=== PATIENT | male | born 1990 | race Caucasian/White ===

== ENCOUNTER 2017-06-01 08:54 | Emergency (ER) | payer BC ==
[~2017-06-01] VITALS: Ht 177.8 cm; Wt 81.5 kg
[~2017-06-01 08:54] MED LIST: DICY1TAB26 PO; LEXA5TAB PO; ZOFR4TAB3 PO
[2017-06-01 08:55] VITALS: BP 124/102; PULSE 107; RESP 20; TEMP 98.6; O2SAT 98
[2017-06-01 09:10] VITALS: BP 142/83; PULSE 110; RESP 16; O2SAT 99
[2017-06-01] MEDS ORDERED: ONDANSETRON HCL 4 MG/2 ML VIAL IV PUSH ONE (09:15)
[2017-06-01] MEDS ORDERED: DICYCLOMINE HCL 10 MG CAP PO ONE (09:15)
[2017-06-01] MEDS ORDERED: MORPHINE SULFATE 4 MG/ML INJ IV PUSH ONE (09:15)
[2017-06-01] MEDS ORDERED: SODIUM CHLOR 0.9% 1000 ML INJ 1,000 ML IV ONE ×2 (09:15)
--- NOTE | 2017-06-01 09:18 | PD ---
HPI Chief Complaint: Cold / Flu Symptoms Time Seen by Provider: 09:10 Travel History International Travel<30 days: No Contact w/Intl Traveler<30days: No Traveled to known affect area: No History of Present Illness HPI The patient is a 27-year-old male who presents emergency department for nausea, vomiting, diarrhea. The patient states her symptoms started this morning at 8 AM with multiple episodes of diarrhea which she describes as loose , watery, brown without any visible blood. He also notes mild epigastric discomfort after vomiting. He also complains of a sore throat after vomiting. He does note mild nasal congestion but denies any diffuse body aches. He denies any cough or shortness of breath. He does have a sick family member at home with similar symptoms last week which lasted 24 hours. He denies any fever , chills, or sweats. Symptoms are moderate. There are no current alleviating or exacerbating factors. He did not receive an influenza vaccination this year. PFSH Past Medical History Depression: Yes Gastrointestinal Disorders: Yes (IBS) Ulcer: Yes Past Surgical History Other Surgery: Yes (JAW) Social History Alcohol Use: Yes (OCC) Tobacco Use: Yes (2 CIGS DAILY) Substance Use: No Allergies-Medications (Allergen,Severity, Reaction): Coded Allergies: zolpidem (Unverified Allergy, Severe, 12/08/16) ONLY AMBIEN CR. CAN TAKE REGULAR AMBIEN Reported Meds & Prescriptions Reported Meds & Active Scripts Active Zofran ODT (Ondansetron HCl) 4 Mg Tab 4 Mg PO Q6 PRN May substitute, non-ODT form Bentyl (Dicyclomine HCl) 20 Mg Tab 1-2 Tab PO Q6HR PRN Reported Lexapro (Escitalopram Oxalate) 5 Mg Tab 2.5 Mg PO DAILY Review of Systems Except as stated in HPI: all other systems reviewed are Neg General / Constitutional: No: Fever, Chills HENT: Positive: Congestion Cardiovascular: No: Chest Pain or Discomfort Respiratory: No: Cough, Shortness of Breath Gastrointestinal: Positive: Nausea, Vomiting, Diarrhea, Abdominal Pain Musculoskeletal: No: Myalgias Physical Exam Narrative GENERAL: Awake, alert, pleasant 27-year-old male who appears his stated age and is in no acute respiratory distress. SKIN: Focused skin assessment warm/dry. HEAD: Atraumatic. Normocephalic. EYES: Pupils equal and round. No scleral icterus. No injection or drainage. ENT: No nasal bleeding or discharge. Dry mucous membranes. NECK: Trachea midline. No JVD. CARDIOVASCULAR: Regular, tachycardic with a heart rate over 5. RESPIRATORY: No accessory muscle use. Clear to auscultation. Breath sounds equal bilaterally. GASTROINTESTINAL: Abdomen soft, non-tender, nondistended. No rebound tennis, guarding, rigidity. MUSCULOSKELETAL: No obvious deformities. No clubbing. No cyanosis. No edema. NEUROLOGICAL: Awake and alert. No obvious cranial nerve deficits. Motor grossly within normal limits. Normal speech. PSYCHIATRIC: Appropriate mood and affect; insight and judgment normal. Data Data Last Documented VS Vital Signs Date Time Temp Pulse Resp B/P (MAP) Pulse Ox O2 Delivery O2 Flow Rate FiO2 06/01/17 09:10 110 16 142/83 (102) 99 Room Air 06/01/17 08:55 98.6 Orders Orders Complete Blood Count With Diff (06/01/17 09:14) Comprehensive Metabolic Panel (06/01/17 09:14) Influenzae A/B Antigen (06/01/17 09:14) Ondansetron Inj (Zofran Inj) (06/01/17 09:15) Morphine Inj (Morphine Inj) (06/01/17 09:15) Sodium Chlor 0.9% 1000 Ml Inj (Ns 1000 M (06/01/17 09:15) Sodium Chlor 0.9% 1000 Ml Inj (Ns 1000 M (06/01/17 09:15) Dicyclomine (Bentyl) (06/01/17 09:15) Pantoprazole (Protonix) (06/01/17 10:15) Labs Laboratory Tests Test 06/01/17 09:17 White Blood Count 11.2 TH/MM3 Red Blood Count 6.18 MIL/MM3 Hemoglobin 16.8 GM/DL Hematocrit 47.5 % Mean Corpuscular Volume 76.9 FL Mean Corpuscular Hemoglobin 27.2 PG Mean Corpuscular Hemoglobin Concent 35.4 % Red Cell Distribution Width 13.3 % Platelet Count 224 TH/MM3 Mean Platelet Volume 7.4 FL Neutrophils (%) (Auto) 81.2 % Lymphocytes (%) (Auto) 14.3 % Monocytes (%) (Auto) 3.4 % Eosinophils (%) (Auto) 0.9 % Basophils (%) (Auto) 0.2 % Neutrophils # (Auto) 9.1 TH/MM3 Lymphocytes # (Auto) 1.6 TH/MM3 Monocytes # (Auto) 0.4 TH/MM3 Eosinophils # (Auto) 0.1 TH/MM3 Basophils # (Auto) 0.0 TH/MM3 CBC Comment DIFF FINAL Differential Comment Blood Urea Nitrogen 21 MG/DL Creatinine 1.23 MG/DL Random Glucose 119 MG/DL Total Protein 8.9 GM/DL Albumin 4.7 GM/DL Calcium Level 9.9 MG/DL Alkaline Phosphatase 99 U/L Aspartate Amino Transf (AST/SGOT) 44 U/L Alanine Aminotransferase (ALT/SGPT) 75 U/L Total Bilirubin 0.5 MG/DL Sodium Level 136 MEQ/L Potassium Level 3.5 MEQ/L Chloride Level 103 MEQ/L Carbon Dioxide Level 24.8 MEQ/L Anion Gap 8 MEQ/L Estimat Glomerular Filtration Rate 71 ML/MIN MDM Medical Decision Making Medical Screen Exam Complete: Yes Emergency Medical Condition: Yes Medical Record Reviewed: Yes Interpretation(s) Date/Time Source Procedure Growth Status 06/01/17 09:17 Nasal Aspirate Influenza Types A,B Antigen (JOSE) - Final NEGATIVE FOR FLU A AND B ANTIGEN.... Complete Laboratory Tests Test 06/01/17 09:17 White Blood Count 11.2 TH/MM3 Red Blood Count 6.18 MIL/MM3 Hemoglobin 16.8 GM/DL Hematocrit 47.5 % Mean Corpuscular Volume 76.9 FL Mean Corpuscular Hemoglobin 27.2 PG Mean Corpuscular Hemoglobin Concent 35.4 % Red Cell Distribution Width 13.3 % Platelet Count 224 TH/MM3 Mean Platelet Volume 7.4 FL Neutrophils (%) (Auto) 81.2 % Lymphocytes (%) (Auto) 14.3 % Monocytes (%) (Auto) 3.4 % Eosinophils (%) (Auto) 0.9 % Basophils (%) (Auto) 0.2 % Neutrophils # (Auto) 9.1 TH/MM3 Lymphocytes # (Auto) 1.6 TH/MM3 Monocytes # (Auto) 0.4 TH/MM3 Eosinophils # (Auto) 0.1 TH/MM3 Basophils # (Auto) 0.0 TH/MM3 CBC Comment DIFF FINAL Differential Comment Blood Urea Nitrogen 21 MG/DL Creatinine 1.23 MG/DL Random Glucose 119 MG/DL Total Protein 8.9 GM/DL Albumin 4.7 GM/DL Calcium Level 9.9 MG/DL Alkaline Phosphatase 99 U/L Aspartate Amino Transf (AST/SGOT) 44 U/L Alanine Aminotransferase (ALT/SGPT) 75 U/L Total Bilirubin 0.5 MG/DL Sodium Level 136 MEQ/L Potassium Level 3.5 MEQ/L Chloride Level 103 MEQ/L Carbon Dioxide Level 24.8 MEQ/L Anion Gap 8 MEQ/L Estimat Glomerular Filtration Rate 71 ML/MIN Differential Diagnosis Differential diagnosis includes gastroenteritis, enteritis, colitis, food poisoning, influenza, viral syndrome, electrolyte abnormality, dehydration. Narrative Course IV was established, labs are drawn and sent, and the patient was placed on cardiac telemetry monitoring and continuous pulse oximetry monitoring. The patient received Zofran, morphine, Bentyl, and 2 L of IV fluids. Influenza screen was sent to lab. Influenza screen is negative. BUN is slightly elevated , most likely secondary to dehydration. The patient states he takes Protonix 80 mg twice a day, has to refill his prescription today. His prescription was prescribed by [employer] after endoscopy in [place]. Therefore, the patient was administered Protonix 80 mg orally. His symptoms have improved, he will be discharged home on Zofran. He is advised to have clear liquid diet and advance as tolerated. Return if symptoms worsen or progress. Diagnosis Primary Impression: Gastroenteritis Patient Instructions: General Instructions Additional Instructions: Zofran as directed. Clear liquid diet and advance as tolerated. Plenty fluids to stay hydrated. Return if symptoms worsen or progress. Med/Other Pt SpecificInfo: Prescription(s) given Scripts Ondansetron Odt (Zofran Odt) 4 Mg Tab 4 MG SL Q6HR Y for Nausea/Vomiting, #7 TAB 0 Refills Prov: Azar Egan MD 06/01/17 Disposition: DISCHARGE HOME Condition: Stable Azar Egan MD Jun 01, 2017 09:18
[2017-06-01 09:31] LABS: AUTOMATED NEUTROPHIL # 9.1 TH/MM3 (1.8-7.7); BASOPHIL % 0.2 % (0.0-2.0); EOSINOPHIL # 0.1 TH/MM3 (0-0.4); EOSINOPHIL % 0.9 % (0.0-4.0); HEMATOCRIT 47.5 % (39.0-51.0); HEMOGLOBIN 16.8 GM/DL (13.0-17.0); LYMPH % 14.3 % (9.0-44.0); LYMPHOCYTE # 1.6 TH/MM3 (1.0-4.8); MEAN CELL VOLUME 76.9 FL (80.0-100.0); MEAN CORPUSCULAR HEMOGLOBIN 27.2 PG (27.0-34.0); MEAN CORPUSCULAR HGB CONC 35.4 % (32.0-36.0); MEAN PLATELET VOLUME 7.4 FL (7.0-11.0); MONO % 3.4 % (0.0-8.0); MONOCYTE # 0.4 TH/MM3 (0-0.9); NEUT % 81.2 % (16.0-70.0); PLATELET COUNT 224 TH/MM3 (150-450); RED BLOOD COUNT 6.18 MIL/MM3 (4.50-5.90); RED CELL DISTRIBUTION WIDTH 13.3 % (11.6-17.2); WHITE BLOOD COUNT 11.2 TH/MM3 (4.0-11.0)
[2017-06-01 09:48] LABS: ALBUMIN 4.7 GM/DL (3.4-5.0); AST (GOT) 44 U/L (15-37); BICARBONATE 24.8 MEQ/L (21.0-32.0); BLOOD UREA NITROGEN 21 MG/DL (7-18); CALCIUM 9.9 MG/DL (8.5-10.1); CHLORIDE 103 MEQ/L (98-107); CREATININE 1.23 MG/DL (0.60-1.30); GLOMERULAR FILTRATION RATE 71 ML/MIN (>89); GLUCOSE,RANDOM 119 MG/DL (74-106); SODIUM (NA) 136 MEQ/L (136-145)
[2017-06-01 09:52] LABS: ALKALINE PHOSPHATASE 99 U/L (45-117); ALT (GPT) 75 U/L (12-78); TOTAL BILIRUBIN ADULT 0.5 MG/DL (0.2-1.0); TOTAL PROTEIN 8.9 GM/DL (6.4-8.2)
[2017-06-01] MEDS ORDERED: PANTOPRAZOLE SOD 40 MG DELAYED RELEASE TAB PO ONE (10:15)
[2017-06-01] MEDS ORDERED: ZOFR4TAB3 SL (10:17)
[2017-06-01 10:53] VITALS: BP 130/82; PULSE 92; RESP 15; O2SAT 99
== END 2017-06-01 10:59 | disposition home or self-care (01) ==
LOC: NEPD 08:54
DX: K52.9 Noninfective gastroenteritis and colitis, unspecified (principal); F32.9 Major depressive disorder, single episode, unspecified; F17.210 Nicotine dependence, cigarettes, uncomplicated; Z88.8 Allergy status to other drugs, medicaments and biological substances; Z79.899 Other long term (current) drug therapy
CPT/HCPCS: 80053; 85025; 87804; 96361; 96374; 96375; 99284; J2270; J2405; J7030

== ENCOUNTER 2018-03-25 12:17 | Observation (INO) ==
[2018-03-25] MEDS ORDERED: Morphine Inj 4 MG/ML Vial IV.PUSH ONE (12:48)
--- NOTE | 2018-03-25 12:59 | ED ---
HPI General Chief Complaint: Abdominal Pain Stated Complaint: Abd Pain Time Seen by Provider: 03/25/18 12:40 History of Present Illness HPI narrative: This patient complains of abdominal pain. Location is right lower quadrant. Severity is moderate. Denies vomiting or diarrhea. Duration is about 8 hours. He reports history of irritable bowel syndrome but says this feels very different. No alleviating factors. No exacerbating factors. Not having any fever or urinary complaints. Related Data Home Medications Medication Instructions Recorded Confirmed amoxicillin 500 mg PO BID 03/25/18 03/25/18 pantoprazole 40 mg PO DAILY 03/25/18 03/25/18 Allergies Allergy/AdvReac Type Severity Reaction Status Date / Time zolpidem Allergy Severe Hives Unverified 03/25/18 12:22 Review of Systems ROS: all other systems reviewed are negative [facility] Medical History Medical History IBS (irritable bowel syndrome) (Acute) Surgical History Surgical History History of mandibular surgery (Acute) Social History Social History Substance History: No History of Abuse Second Hand Smoke Exposure: Yes Smoking Status: Heavy tobacco smoker Tobacco Type: Cigarettes How Often Do You Have a Drink Containing Alcohol: Monthly or less Recent Travel in [facility] within the Last 8 Weeks: No Recent Out of Country Travel within the Last 8 Weeks: No Immunization History Tetanus Immunization: Unsure Exam Narrative Exam Narrative: GENERAL: Well-nourished, well-developed patient in no apparent distress. SKIN: Focused skin assessment reveals no rash and nodules. Skin is Warm and dry. HEAD: Atraumatic. Normocephalic. EYES: Pupils equal and round. No scleral icterus. No injection or drainage. ENT: No nasal bleeding or discharge. Mucous membranes pink and moist. NECK: Trachea midline. No JVD. CARDIOVASCULAR: Regular rate and rhythm. No murmur appreciated. RESPIRATORY: No accessory muscle use. Clear to auscultation. Breath sounds equal bilaterally. GASTROINTESTINAL: Abdomen soft, right lower quadrant is tender without rebound or guarding, nondistended. Hepatic and splenic margins not palpable. MUSCULOSKELETAL: No obvious deformities. No clubbing. No cyanosis. No edema. NEUROLOGICAL: Awake and alert. No obvious cranial nerve deficits. Motor grossly within normal limits. Normal speech. PSYCHIATRIC: Appropriate mood and affect; insight and judgment normal. Course Initial Documented Vital Signs Temperature 97.6 F 03/25/18 12:20 Pulse Rate 91 H 03/25/18 12:20 Respiratory Rate 18 03/25/18 12:20 Blood Pressure 145/92 H 03/25/18 12:20 Pulse Oximetry 98 03/25/18 12:20 Last Documented Vital Signs Temperature 97.6 F 03/25/18 12:20 Pulse Rate 86 03/25/18 13:00 Respiratory Rate 16 03/25/18 15:01 Blood Pressure 144/85 H 03/25/18 13:00 Pulse Oximetry 99 03/25/18 13:00 Medical Decision Making MDM Narrative Medical decision making narrative: 27-year-old male with 8 hours of right lower quadrant pain. I will need to rule out appendicitis. I ordered labs and a CT of abdomen and pelvis and urinalysis. Given 1 dose of morphine and Zofran for symptom relief. Labs are reviewed. Reasonably normal. I gave him IV fluid and a dose of Zosyn. CT shows acute appendicitis. I have discussed with general surgeon Dr. Coello who will admit for operative intervention Medical Screen Exam Complete: Yes Emergency Medical Condition: Yes Differential Diagnosis Differential Diagnosis: Appendicitis, colitis, IBS Medical Records Medical records reviewed: Yes I reviewed the patient's medical records. Lab Data Lab results reviewed: Yes I reviewed the patient's lab results. Lab results narrative: White cell count is 11. Hemoglobin normal. Creatinine normal Result diagrams: 03/25/18 12:00 03/25/18 12:00 Lab Results 03/25/18 03/25/18 03/25/18 Range/Units 12:00 12:00 12:00 WBC 11.2 H (4.0-11.0) th/mm3 RBC 5.39 (4.50-5.90) mil/mm3 Hgb 14.6 (13.0-17.0) gm/dL Hct 42.6 (39.0-51.0) % MCV 79.1 L (80.0-100.0) fL MCH 27.2 (27.0-34.0) pg MCHC 34.3 (32.0-36.0) % RDW 13.6 (11.6-17.2) % Plt Count 209 (150-450) th/mm3 MPV 8.0 (7.0-11.0) fL Neut % (Auto) 78.4 H (16.0-70.0) % Lymph % (Auto) 15.4 (9.0-44.0) % Todd % (Auto) 5.0 (0.0-8.0) % Eos % (Auto) 0.9 (0.0-4.0) % Baso % (Auto) 0.3 (0.0-2.0) % Neut # (Auto) 8.8 H (1.8-7.7) th/mm3 Lymph # (Auto) 1.7 (1.0-4.8) th/mm3 Todd # (Auto) 0.6 (0.0-0.9) th/mm3 Eos # (Auto) 0.1 (0.0-0.4) th/mm3 Baso # (Auto) 0.0 (0.0-0.2) th/mm3 WBC Differential . Differential Comment Auto diff final PT 10.3 (9.8-11.6) sec INR 1.0 Ratio APTT 30.7 (23.4-31.7) sec Sodium 137 (136-145) meq/L Potassium 3.4 L (3.5-5.1) meq/L Chloride 104 (98-107) meq/L Carbon Dioxide 26.2 (21.0-32.0) meq/L Anion Gap 7 (5-15) meq/L BUN 23 H (7-18) mg/dL Creatinine 0.98 (0.60-1.30) mg/dL Estimated GFR Greater than 89 (>89) mL/min Random Glucose 111 H (74-106) mg/dL Calcium 8.8 (8.5-10.1) mg/dL Total Bilirubin 0.4 (0.2-1.0) mg/dL AST 40 H (15-37) U/L ALT 99 H (12-78) U/L Alkaline Phosphatase 100 (45-117) U/L Total Protein 7.7 (6.4-8.2) g/dL Albumin 4.3 (3.4-5.0) g/dL Urine Color (Yellw/Straw) Urine Clarity (Clear) Urine pH (5.0-8.5) Ur Specific [place] (1.002-1.035) Urine Protein (Neg-Trace) mg/dL Urine Glucose (UA) (Negative) mg/dL Urine Ketones (Negative) mg/dL Urine Occult Blood (Negative) Urine Nitrate (Negative) Urine Bilirubin (Negative) Urine Urobilinogen (Less than 2) mg/dL Ur Leukocyte Esterase (Negative) Urine RBC (0-3) /hpf Urine WBC (0-5) /hpf Waxy Casts (None) /lpf Urine Mucus (Occasional) /lpf Micro UA Comment Ur Microscopic Review Urine Culture Comments 03/25/18 Range/Units 14:45 WBC (4.0-11.0) th/mm3 RBC (4.50-5.90) mil/mm3 Hgb (13.0-17.0) gm/dL Hct (39.0-51.0) % MCV (80.0-100.0) fL MCH (27.0-34.0) pg MCHC (32.0-36.0) % RDW (11.6-17.2) % Plt Count (150-450) th/mm3 MPV (7.0-11.0) fL Neut % (Auto) (16.0-70.0) % Lymph % (Auto) (9.0-44.0) % Todd % (Auto) (0.0-8.0) % Eos % (Auto) (0.0-4.0) % Baso % (Auto) (0.0-2.0) % Neut # (Auto) (1.8-7.7) th/mm3 Lymph # (Auto) (1.0-4.8) th/mm3 Todd # (Auto) (0.0-0.9) th/mm3 Eos # (Auto) (0.0-0.4) th/mm3 Baso # (Auto) (0.0-0.2) th/mm3 WBC Differential Differential Comment PT (9.8-11.6) sec INR Ratio APTT (23.4-31.7) sec Sodium (136-145) meq/L Potassium (3.5-5.1) meq/L Chloride (98-107) meq/L Carbon Dioxide (21.0-32.0) meq/L Anion Gap (5-15) meq/L BUN (7-18) mg/dL Creatinine (0.60-1.30) mg/dL Estimated GFR (>89) mL/min Random Glucose (74-106) mg/dL Calcium (8.5-10.1) mg/dL Total Bilirubin (0.2-1.0) mg/dL AST (15-37) U/L ALT (12-78) U/L Alkaline Phosphatase (45-117) U/L Total Protein (6.4-8.2) g/dL Albumin (3.4-5.0) g/dL Urine Color Yellow (Yellw/Straw) Urine Clarity Clear (Clear) Urine pH 5.0 (5.0-8.5) Ur Specific [place] 1.027 (1.002-1.035) Urine Protein Negative (Neg-Trace) mg/dL Urine Glucose (UA) Negative (Negative) mg/dL Urine Ketones Negative (Negative) mg/dL Urine Occult Blood Negative (Negative) Urine Nitrate Negative (Negative) Urine Bilirubin Negative (Negative) Urine Urobilinogen Less than 2 (Less than 2) mg/dL Ur Leukocyte Esterase Negative (Negative) Urine RBC 1 (0-3) /hpf Urine WBC 1 (0-5) /hpf Waxy Casts 1 (None) /lpf Urine Mucus Few H (Occasional) /lpf Micro UA Comment Culture not ind Ur Microscopic Review Not Reportable Urine Culture Comments Culture not ind Imaging Data Attestation: I personally reviewed and interpreted this imaging study as follows : My impression: CT shows acute appendicitis Radiologist's impression: Abdomen/Pelvis CT 03/25/18 12:48 CONCLUSION: 1. Mildly dilated fluid-filled appendix with periappendiceal inflammatory changes suggesting acute unruptured appendicitis. No periappendiceal abscess is noted. Discharge Plan Discharge Disposition Patient Disposition: ED Admit(ED Internal Use Only) Discharge Details Diagnosis: Acute appendicitis Physicians Team ED Provider: Kirk Guzman Primary Care Provider: Primary Care Rachel Barajas Rxs /Orders / Referrals /Forms Prescriptions: No Action amoxicillin 500 mg Tablet 500 mg PO BID RF: 0 pantoprazole 40 mg Tablet,Delayed Release (Dr/Ec) 40 mg PO DAILY RF: 0 Status ED Status: Admitted Patient
[2018-03-25 13:36] LABS: Baso % (Auto) 0.3 % (0.0-2.0); Eos # (Auto) 0.1 th/mm3 (0.0-0.4); Eos % (Auto) 0.9 % (0.0-4.0); Hematocrit 42.6 % (39.0-51.0); Hemoglobin 14.6 gm/dL (13.0-17.0); Lymph # (Auto) 1.7 th/mm3 (1.0-4.8); Lymph % (Auto) 15.4 % (9.0-44.0); Mean Corpuscular HGB Conc 34.3 % (32.0-36.0); Mean Corpuscular Hemoglobin 27.2 pg (27.0-34.0); Mean Corpuscular Volume 79.1 fL (80.0-100.0); Mono # (Auto) 0.6 th/mm3 (0.0-0.9); Neut # (Auto) 8.8 th/mm3 (1.8-7.7); Neut % (Auto) 78.4 % (16.0-70.0); Platelet Count 209 th/mm3 (150-450); Red Blood Count 5.39 mil/mm3 (4.50-5.90); Red Cell Distribution Width 13.6 % (11.6-17.2); White Blood Count 11.2 th/mm3 (4.0-11.0)
[2018-03-25 13:45] LABS: Activated Partial Thrombo Time 30.7 sec (23.4-31.7); Prothrombin Time 10.3 sec (9.8-11.6)
[2018-03-25 14:07] LABS: Alanine Aminotransferase 99 U/L (12-78); Albumin 4.3 g/dL (3.4-5.0); Anion Gap 7 meq/L (5-15); Aspartate Aminotransferase 40 U/L (15-37); Blood Urea Nitrogen 23 mg/dL (7-18); Calcium 8.8 mg/dL (8.5-10.1); Carbon Dioxide 26.2 meq/L (21.0-32.0); Chloride 104 meq/L (98-107); Glomerular Filtration Rate Greater Than 89 mL/min (>89); Glucose,Random 111 mg/dL (74-106); Potassium 3.4 meq/L (3.5-5.1); Sodium 137 meq/L (136-145)
[2018-03-25 14:09] LABS: Alkaline Phosphatase 100 U/L (45-117); Total Protein 7.7 g/dL (6.4-8.2)
[2018-03-25] MEDS ORDERED: Sod Chloride 0.9% Inj 1,000 ML IV.SIG ONE (14:46)
[2018-03-25 15:05] LABS: Bilirubin,Urine Negative (Negative); Clarity,Urine Clear (Clear); Color,Urine Yellow (Yellw/Straw); Glucose,Urine (UA) Negative (Negative); Leukocyte Esterase,Urine Negative (Negative); Mucus,Urine Few /lpf (Occasional); Nitrite,Urine Negative (Negative); Specific Gravity,Urine 1.027 (1.002-1.035)
--- NOTE | 2018-03-25 15:38 | CT ---
EXAM DATE: 03/25/2018 3:17 PM EST AGE/SEX: 27 years / Male INDICATIONS: Right lower abdomen pain today. CLINICAL DATA: This is the patient's initial encounter. Patient reports that signs and symptoms have been present for 1 day and indicates a pain score of 9/10. MEDICAL/SURGICAL HISTORY: None. None. ORAL CONTRAST: No oral contrast ingested. RADIATION DOSE: 6.84 CTDI (mGy) COMPARISON: [facility] – [place], CT ABDOMEN & PELVIS W CONTRAST, 01/28/2012. . TECHNIQUE: Multiple contiguous axial images were obtained through the abdomen and pelvis following b olus infusion of 96 ml Omnipaque 350 (iohexol) nonionic water-soluble contrast as a single exam dos e. No oral contrast ingested. Using automated exposure control and adjustment of the mA and/or kV ac cording to patient size, radiation dose was kept as low as reasonably achievable to obtain optimal di agnostic quality images. DICOM format image data is available electronically for review and comparis on. FINDINGS: Lower Lungs: The visualized lower lungs are clear. Liver: The liver has a homogeneous density without space-occupying lesion. There is no dilation of th e biliary tree. Spleen: Homogeneous density without enlargement. Pancreas: Unremarkable without mass or calcification. Kidneys: Normal in size and shape. No evidence of mass or hydronephrosis. Adrenal Glands: Unremarkable. Aorta: The aorta and proximal iliac vessels are grossly unremarkable without aneurysmal dilation. Bowel/Mesentery: There is evidence of a mildly dilated fluid-filled appendix with periappendiceal in flammatory changes suggesting acute unruptured appendicitis. No periappendiceal abscess is noted. Abdominal Wall: Intact. Retroperitoneum: No evidence of adenopathy in the retrocrural, para-aortic, or deep pelvic regions. Bladder: Contours are smooth. Reproductive Organs: No abnormal masses or calcifications seen. Inguinal: The inguinal region is unremarkable without evidence of adenopathy. Bony Structures: Unremarkable. CONCLUSION: 1. Mildly dilated fluid-filled appendix with periappendiceal inflammatory changes suggesting acute u nruptured appendicitis. No periappendiceal abscess is noted. Electronically signed by: Asif Freeman MD 03/25/2018 3:37 PM EST
[2018-03-25] MEDS ORDERED: Piperacil/Tazo 3.375 GM Premix 50 ML IV.SIG ONE (15:50)
[2018-03-25] MEDS ORDERED: fentaNYL Citrate Inj 250 MCG/5 ML Ampul ONE (16:00)
[2018-03-25] MEDS ORDERED: Bupivacaine/Epinephrine Inj 0.25% 50 ML Vial ONE (16:40)
[2018-03-25] MEDS ORDERED: Bisacodyl 10 MG Supp RECTAL PRN (18:07)
[2018-03-25] MEDS ORDERED: Morphine Sulfate Inj 8 MG/ML Vial IV.PUSH PRN (18:07)
[2018-03-25] MEDS ORDERED: Post-op Orders (for Pharmacy) OTHER ONE (18:07)
[2018-03-25] MEDS ORDERED: Promethazine 25 MG Supp RECTAL PRN (18:07)
[2018-03-25] MEDS ORDERED: Ketorolac Inj 30 MG/ML (IVP) Vial IV.PUSH PRN (18:07)
--- NOTE | 2018-03-25 18:17 | P.HP ---
History of Present Illness Primary Care Physician: No Primary Care Physician History of Present Illness: Patient presents with about an 8-hour history of lower abdominal pain that has localized to the right lower quadrant. Patient denies nausea emesis or change in bowel habits. He has a baseline loose bowel movement from IBS. He denies fever or chills. - Diagnosis (1) Acute appendicitis Estimated Total Length of Stay (Days): 1 (Observation status) Plans for Post Hospital Care: Home Review of Systems All other systems reviewed negative except as stated in [facility] [place] - History History Provided By: Patient - Medical History Medical History: Medical History (Last Updated 03/25/18 @ 12:21 by Chloe Lyon) IBS (irritable bowel syndrome) - Surgical History Surgical History: Surgical History (Last Updated 03/25/18 @ 12:21 by Chloe Lyon) History of mandibular surgery - Tobacco History Second Hand Smoke Exposure: Yes Tobacco Use In Past 30 Days: Yes Smoking Status: Heavy tobacco smoker Tobacco Type: Cigarettes - Alcohol History How Often Do You Have a Drink Containing Alcohol: Monthly or less - Substance Use History Substance History: No History of Abuse - Travel History Recent Travel in the [place] Within the Last 8 Weeks: No Recent Travel Out of the Country Within the Last 8 Weeks: No - Immunization History Tetanus Immunization: Unsure Medications and Allergies Active Medications: Active Medications Hydrocodone Bitart/Acetaminophen ([place] 5/325) 1 tab PO Q4H PRN PRN Reason: PAIN SCALE 1 TO 5 Al Hydroxide/Mg Hydroxide (Milk Of Magnesia Liq) 30 ml PO Q12H PRN PRN Reason: Mild Constipation Bisacodyl (Dulcolax Supp) 10 mg RECTAL DAILY PRN PRN Reason: SEVERE CONSITIPATION Diphenhydramine HCl (Benadryl) 25 mg PO Q6H PRN PRN Reason: ITCHING Sodium Chloride (Ns Inj) 1,000 mls @ 100 mls/hr IV.CONT .Q10H ANDRE Ketorolac Tromethamine (Toradol Inj) 30 mg IV.PUSH Q6H PRN PRN Reason: PAIN SCALE 1 TO 5 Stop: 03/30/18 18:06 Lactulose (Lactulose Liq) 30 ml PO DAILY PRN PRN Reason: SEVERE CONSITIPATION Miscellaneous Information (Misc Post-Op Orders (For Pharmacy)) 0 each OTHER STAT ONE Stop: 03/25/18 18:08 Miscellaneous Information ([facility] Nursing Information) 1 each OTHER UNSCH PRN PRN Reason: SEE LABEL COMMENTS Stop: 03/26/18 18:10 Morphine Sulfate (Morphine Inj) 5 mg IV.PUSH Q2H PRN PRN Reason: BREAKTHROUGH PAIN Ondansetron HCl (Zofran Odt) 4 mg PO Q6H PRN PRN Reason: NAUSEA OR VOMITING Ondansetron HCl (Zofran Inj) 4 mg IV.PUSH Q6H PRN PRN Reason: NAUSEA OR VOMITING Promethazine HCl (Phenergan) 25 mg PO Q6H PRN PRN Reason: NAUSEA OR VOMITING Promethazine HCl (Phenergan Supp) 25 mg RECTAL Q6H PRN PRN Reason: NAUSEA OR VOMITING Senna/Docusate Sodium (Yaneli-Colace) 1 tab PO BID ANDRE Sennosides (Senokot) 17.2 mg PO Q12H PRN PRN Reason: Moderate Constipation Sodium Chloride (Ns Flush) 2 ml IV.FLUSH PRN PRN PRN Reason: FLUSH AFTER USING IV ACCESS Last Admin: 03/25/18 12:57 Dose: 2 ml Allergies Allergy/AdvReac Type Severity Reaction Status Date / Time zolpidem Allergy Severe Hives Unverified 03/25/18 12:22 Home Medications Medication Instructions Recorded Confirmed Type amoxicillin 500 mg PO BID 03/25/18 03/25/18 History pantoprazole 40 mg PO DAILY 03/25/18 03/25/18 History Exam Vital signs: Vital Signs 03/25/18 12:20 03/25/18 13:00 03/25/18 15:01 Temperature 97.6 F Pulse Rate 91 H 86 Respiratory Rate 18 16 16 Blood Pressure 145/92 H 144/85 H Pulse Oximetry 98 99 03/25/18 16:00 Temperature Pulse Rate 75 Respiratory Rate 16 Blood Pressure 117/74 Pulse Oximetry 100 Intake & Output 03/24/18 03/25/18 03/25/18 18:59 06:59 18:59 Intake Total 1550 / 1550 Output Total 10 Balance 1540 / 1540 Weight 86.183 kg Intake: IV 1050 / 1050 Zosyn 3.375 GM Premix 50 ML @ 50 / 50 100 mls/hr IV.SIG ONCE ONE Rx#: [id number] NS Inj 1,000 ML @ Wide Open IV. 1000 / 1000 SIG BOLUS ONE Rx#:[id number] Anesthesia Amount 500 / 500 Output: Estimated Blood Loss - Constitutional no acute distress - Routine HEENT Exam Head: Present: normocephalic, atraumatic - Routine Neck Exam Present: supple - Routine Respiratory Exam Present: CTA bilaterally - Routine Cardiovascular Exam Present: RRR - Routine Abdominal Exam Present: soft, tenderness (Right lower quadrant with guarding) - Routine Skin Exam Present: intact - Routine Neurological Exam Present: alert, oriented X3 Results - Labs CBC & Chem 7: 03/25/18 12:00 03/25/18 12:00 Labs: Laboratory Results - last 24 hr 03/25/18 03/25/18 03/25/18 12:00 12:00 12:00 WBC 11.2 H RBC 5.39 Hgb 14.6 Hct 42.6 MCV 79.1 L MCH 27.2 MCHC 34.3 RDW 13.6 Plt Count 209 MPV 8.0 Neut % (Auto) 78.4 H Lymph % (Auto) 15.4 [place] % (Auto) 5.0 Eos % (Auto) 0.9 Baso % (Auto) 0.3 Neut # (Auto) 8.8 H Lymph # (Auto) 1.7 [place] # (Auto) 0.6 Eos # (Auto) 0.1 Baso # (Auto) 0.0 WBC Differential . Differential Comment Auto diff final PT 10.3 INR 1.0 APTT 30.7 Sodium 137 Potassium 3.4 L Chloride 104 Carbon Dioxide 26.2 Anion Gap 7 BUN 23 H Creatinine 0.98 Estimated GFR Greater than 89 Random Glucose 111 H Calcium 8.8 Total Bilirubin 0.4 AST 40 H ALT 99 H Alkaline Phosphatase 100 Total Protein 7.7 Albumin 4.3 Urine Color Urine Clarity Urine pH Ur Specific [place] Urine Protein Urine Glucose (UA) Urine Ketones Urine Occult Blood Urine Nitrate Urine Bilirubin Urine Urobilinogen Ur Leukocyte Esterase Urine RBC Urine WBC Waxy Casts Urine Mucus Micro UA Comment Ur Microscopic Review Urine Culture Comments 03/25/18 14:45 WBC RBC Hgb Hct MCV MCH MCHC RDW Plt Count MPV Neut % (Auto) Lymph % (Auto) [place] % (Auto) Eos % (Auto) Baso % (Auto) Neut # (Auto) Lymph # (Auto) [place] # (Auto) Eos # (Auto) Baso # (Auto) WBC Differential Differential Comment PT INR APTT Sodium Potassium Chloride Carbon Dioxide Anion Gap BUN Creatinine Estimated GFR Random Glucose Calcium Total Bilirubin AST ALT Alkaline Phosphatase Total Protein Albumin Urine Color Yellow Urine Clarity Clear Urine pH 5.0 Ur Specific [place] 1.027 Urine Protein Negative Urine Glucose (UA) Negative Urine Ketones Negative Urine Occult Blood Negative Urine Nitrate Negative Urine Bilirubin Negative Urine Urobilinogen Less than 2 Ur Leukocyte Esterase Negative Urine RBC 1 Urine WBC 1 Waxy Casts 1 Urine Mucus Few H Micro UA Comment Culture not ind Ur Microscopic Review Not Reportable Urine Culture Comments Culture not ind - Imaging Impressions Abdomen/Pelvis CT 03/25/18 12:48 CONCLUSION: 1. Mildly dilated fluid-filled appendix with periappendiceal inflammatory changes suggesting acute unruptured appendicitis. No periappendiceal abscess is noted. Caprini VTE Risk Assessment Caprini VTE Risk Assessment: No/Low Risk (score <= 1) (Age <40, no risk factors) Caprini Risk Assessment Model: Point Value = 1 Point Value = 2 Point Value = 3 Point Value = 5 Age 41-60 Minor surgery BMI > 25 kg/m2 Swollen legs Varicose veins or History of unexplained or recurrent spontaneous Oral contraceptives or hormone replacement Sepsis (< 1 month) Serious lung disease, including pneumonia (< 1 month) Abnormal pulmonary function Acute myocardial infarction Congestive heart failure (< 1 month) History of inflammatory bowel disease Medical patient at bed rest Age 61-74 Arthroscopic surgery Major open surgery (> 45 min) Laparoscopic surgery (> 45 min) Malignancy Confined to bed (> 72 hours) Immobilizing plaster cast Central venous access Age >= 75 History of VTE Family history of VTE Factor V Leiden Prothrombin [id number] Lupus anticoagulant Anticardiolipin antibodies Elevated serum homocysteine Heparin-induced thrombocytopenia Other congenital or acquired thrombophilia Stroke (< 1 month) Elective arthroplasty Hip, pelvis, or leg fracture Acute spinal cord injury (< 1 month) Prophylaxis Regimen: Total Risk Factor Score Risk Level Prophylaxis Regimen 0-1 Low Early ambulation 2 Moderate Order ONE of the following: *Sequential Compression Device (SCD) *Heparin 5000 units SQ BID 3-4 Higher Order ONE of the following medications: *Heparin 5000 units SQ TID *Enoxaparin/Lovenox 40 mg SQ daily (WT < 150 kg, CrCl > 30 mL/min) *Enoxaparin/Lovenox 30 mg SQ daily (WT < 150 kg, CrCl > 10-29 mL/min) *Enoxaparin/Lovenox 30 mg SQ BID (WT < 150 kg, CrCl > 30 mL/min) AND/OR *Sequential Compression Device (SCD) 5 or more Highest Order ONE of the following medications: *Heparin 5000 units SQ TID (Preferred with Epidurals) *Enoxaparin/Lovenox 40 mg SQ daily (WT < 150 kg, CrCl > 30 mL/min) *Enoxaparin/Lovenox 30 mg SQ daily (WT < 150 kg, CrCl > 10-29 mL/min) *Enoxaparin/Lovenox 30 mg SQ BID (WT < 150 kg, CrCl > 30 mL/min) AND *Sequential Compression Device (SCD) Assessment and Plan - Assessment (1) Acute appendicitis Code(s): K35.80 - Unspecified acute appendicitis Status: Acute Plan: I have discussed plan with the patient and recommended he undergo laparoscopic appendectomy. I have discussed risks of surgery with the patient including but not limited to: Bleeding, infection, leakage, abscess formation with drainage and adhesion formation requiring reoperation. I discussed remedies, consequences, alternatives and convalescence; he vocalizes understanding and agrees to proceed. - Plan Discussed Condition With: Patient Nursing staff (1) Acute appendicitis Qualifiers: Acute appendicitis type: with localized peritonitis Appendicitis gangrene presence: without gangrene Appendicitis perforation presence: without perforation Appendicitis abscess presence: without abscess Qualified Code(s): K35.30 - Acute appendicitis with localized peritonitis, without perforation or gangrene
--- NOTE | 2018-03-25 18:22 | P.OP ---
- Preoperative Diagnosis (1) Acute appendicitis - Postoperative Diagnosis (1) Acute appendicitis with localized peritonitis without abscess Date of procedure: 03/25/18 Procedure: Laparoscopic appendectomy Surgeon: Boone Coello MD Biology Professor: Teto Mata CFA Estimated blood loss (mL): 10 IV fluids (mL): 500 Pathology: other (Appendix to pathology) Operation and Findings: Patient was taken to the operating room and placed on the operating table in the supine position. After an adequate level of general endotracheal anesthesia was achieved the abdomen was shaved prepped and draped. Timeout was taken, confirming the correct patient, site, and procedure to be performed. Skin and subcutaneous tissue was infiltrated with local anesthetic and an incision made in the umbilicus and carried through the fascia sharply. The peritoneal cavity was directly visualized. A 12 mm balloon trocar was then inserted and the balloon inflated. The abdomen was insufflated. The patient was placed in Trendelenburg position. Two 5 mm trocars were then placed, with the first in the right lower quadrant and the second in the suprapubic region. Both entered the abdominal cavity under direct vision uneventfully. The cecum was rotated medially and a grossly inflamed appendix was seen with some adherence to the distal ileum. This was easily taken off with blunt dissection. The mesoappendix was then divided with the harmonic scalpel and dissected back to the level of the base of the appendix. A 0 PDS Endoloop was slipped over the appendix and cinched down at the base. The appendix was divided 1 cm distal to the Endoloop and placed into an Endo Catch device. The specimen was removed via the umbilical port while observing via the right lower quadrant 5 mm trocar site. The specimen was passed off the table. The appendiceal stump and mesoappendix were both reexamined and seen to be clean and dry. A small amount of fluid in the right lower quadrant and in the pelvis and the cul-de-sac was irrigated and aspirated. With hemostasis assured , insufflation was discontinued. The two 5 mm trocars were removed under direct vision. No bleeding was noted from the trocar sites. The laparoscope and umbilical port were removed. The fascia was closed in the umbilicus with 0 Vicryl suture in a simple interrupted and [id number] fashion. The remaining local anesthetic was injected into the trocar sites. The skin was closed at each of the trocar sites with 4-0 Vicryl in an interrupted buried fashion. All trocar sites were dressed with Steri-Strips. The patient was extubated and taken back to the recovery room in stable condition. Sponge and needle counts were reported to be correct. He tolerated the procedure well.
[2018-03-25] MEDS: Senna/Docusate Sodium 8.6/50 MG Tablet PO SCH (21:03)
[2018-03-26] MEDS: Sod Chloride 0.9% Inj 1,000 ML IV.CONT SCH ×2 (04:35→04:36)
[2018-03-26 08:50] VITALS: BP 101/57; PULSE 85; RESP 18; TEMP 98.6; O2SAT 97
[2018-03-26] MEDS ORDERED: Influenza (Quadrivalent) Vaccine 0.5 ML Syringe IM ONE (09:00)
[2018-03-26] MEDS: Senna/Docusate Sodium 8.6/50 MG Tablet PO SCH (09:37)
--- NOTE | 2018-03-26 10:52 | P.PNGS ---
Subjective Patient reports: no new complaints, feels better Physical Exam Vital signs: Vital Signs 03/25/18 12:20 03/25/18 13:00 03/25/18 15:01 Temperature 97.6 F Pulse Rate 91 H 86 Respiratory Rate 18 16 16 Blood Pressure 145/92 H 144/85 H Pulse Oximetry 98 99 03/25/18 16:00 03/25/18 17:49 03/25/18 18:09 Temperature 97.3 F L 97.3 F L Pulse Rate 75 91 H 85 Respiratory Rate 16 12 10 L Blood Pressure 117/74 93/52 L 99/53 L Pulse Oximetry 100 94 L 03/25/18 18:31 03/25/18 18:40 03/25/18 20:00 Temperature 96.7 F L 98.1 F Pulse Rate 90 84 Respiratory Rate 18 18 Blood Pressure 120/70 115/69 Pulse Oximetry 96 100 03/26/18 00:00 03/26/18 04:00 03/26/18 08:00 Temperature 98.3 F 99.2 F 98.6 F Pulse Rate 78 86 85 Respiratory Rate 17 17 18 Blood Pressure 98/56 L 104/59 L 101/57 L Pulse Oximetry 100 98 97 Intake & Output 03/25/18 03/26/18 03/26/18 18:59 06:59 18:59 Intake Total 1550 / 1550 Output Total Balance 1540 / 1540 Weight 86.183 kg 85.4 kg Intake: IV 1050 / 1050 Zosyn 3.375 GM Premix 50 ML @ 50 / 50 100 mls/hr IV.SIG ONCE ONE Rx#: [id number] NS Inj 1,000 ML @ Wide Open IV. 1000 / 1000 SIG BOLUS ONE Rx#:[id number] Anesthesia Amount 500 / 500 Output: Estimated Blood Loss Other: # Voids 4 Date of Last Bowel Movement 03/25/18 - Routine Abdominal Exam Present: soft, tenderness (incisional ) Results - Labs 03/25/18 12:00 03/25/18 12:00 Laboratory Results - last 24 hr 03/25/18 03/25/18 03/25/18 12:00 12:00 12:00 WBC 11.2 H RBC 5.39 Hgb 14.6 Hct 42.6 MCV 79.1 L MCH 27.2 MCHC 34.3 RDW 13.6 Plt Count 209 MPV 8.0 Neut % (Auto) 78.4 H Lymph % (Auto) 15.4 [place] % (Auto) 5.0 Eos % (Auto) 0.9 Baso % (Auto) 0.3 Neut # (Auto) 8.8 H Lymph # (Auto) 1.7 [place] # (Auto) 0.6 Eos # (Auto) 0.1 Baso # (Auto) 0.0 WBC Differential . Differential Comment Auto diff final PT 10.3 INR 1.0 APTT 30.7 Sodium 137 Potassium 3.4 L Chloride 104 Carbon Dioxide 26.2 Anion Gap 7 BUN 23 H Creatinine 0.98 Estimated GFR Greater than 89 Random Glucose 111 H Calcium 8.8 Total Bilirubin 0.4 AST 40 H ALT 99 H Alkaline Phosphatase 100 Total Protein 7.7 Albumin 4.3 Urine Color Urine Clarity Urine pH Ur Specific [place] Urine Protein Urine Glucose (UA) Urine Ketones Urine Occult Blood Urine Nitrate Urine Bilirubin Urine Urobilinogen Ur Leukocyte Esterase Urine RBC Urine WBC Waxy Casts Urine Mucus Micro UA Comment Ur Microscopic Review Urine Culture Comments 03/25/18 14:45 WBC RBC Hgb Hct MCV MCH MCHC RDW Plt Count MPV Neut % (Auto) Lymph % (Auto) [place] % (Auto) Eos % (Auto) Baso % (Auto) Neut # (Auto) Lymph # (Auto) [place] # (Auto) Eos # (Auto) Baso # (Auto) WBC Differential Differential Comment PT INR APTT Sodium Potassium Chloride Carbon Dioxide Anion Gap BUN Creatinine Estimated GFR Random Glucose Calcium Total Bilirubin AST ALT Alkaline Phosphatase Total Protein Albumin Urine Color Yellow Urine Clarity Clear Urine pH 5.0 Ur Specific [place] 1.027 Urine Protein Negative Urine Glucose (UA) Negative Urine Ketones Negative Urine Occult Blood Negative Urine Nitrate Negative Urine Bilirubin Negative Urine Urobilinogen Less than 2 Ur Leukocyte Esterase Negative Urine RBC 1 Urine WBC 1 Waxy Casts 1 Urine Mucus Few H Micro UA Comment Culture not ind Ur Microscopic Review Not Reportable Urine Culture Comments Culture not ind - Imaging Imaging: ITS Impressions Abdomen/Pelvis CT 03/25/18 12:48 CONCLUSION: 1. Mildly dilated fluid-filled appendix with periappendiceal inflammatory changes suggesting acute unruptured appendicitis. No periappendiceal abscess is noted. Assessment and Plan - Assessment (1) Acute appendicitis Code(s): K35.80 - Unspecified acute appendicitis Status: Acute - Plan POD 1 Lap appy doing well plan reg diet oob pain control po d/c home today (1) Acute appendicitis Qualifiers: Acute appendicitis type: with localized peritonitis Appendicitis gangrene presence: without gangrene Appendicitis perforation presence: without perforation Appendicitis abscess presence: without abscess Qualified Code(s): K35.30 - Acute appendicitis with localized peritonitis, without perforation or gangrene
== END 2018-03-26 11:56 | disposition home or self-care (01) ==
LOC: NEPD 12:17 → INTOOBSV 15:55 → NEDA 15:55 → N06 18:52
PROVIDERS: ADMIT Surgery Trauma Surgery; ATTEND Surgery Trauma Surgery
PROC: LAPAPPY (ICD-10-PCS; 2018-03-25 16:53)